=== PATIENT | female | born 1960 | race Caucasian/White ===

== ENCOUNTER 2020-04-16 08:09 | Outpatient (CLI) | payer BC, SELFPAY ==
[2020-04-16 08:53] LABS: Alanine Aminotransferase 32 U/L (4-35); Albumin Level 4.1 g/dL (3.5-5.1); Alkaline Phosphatase 71 U/L (38-126); Anion Gap 4 mmol/L (8-16); Aspartate Amino Transferase 31 U/L (14-36); Bilirubin,Total 0.5 mg/dL (0.2-1.3); Blood Urea Nitrogen 14 mg/dL (7-17); Calcium 11.1 mg/dL (8.4-10.2); Carbon Dioxide 31 mmol/L (22-30); Chloride 105 mmol/L (98-107); Cholesterol 245 mg/dL (0-200); Estimated Glomerular Filt Rate > 60; Glucose 131 mg/dL (65-105); HDL Direct 50 mg/dL; Hemoglobin A1C 5.9 % (<5.7); Potassium 4.7 mmol/L (3.4-5.0); Sodium 140 mmol/L (137-145); Triglycerides 202 mg/dL (<150)
[2020-04-16 09:04] LABS: LDL Cholesterol Direct 138 mg/dL
== END 2020-04-16 08:10 | disposition home or self-care (01) ==
PROVIDERS: PCP Family Medicine; Visit Provider Family Medicine
DX: E78.2 Mixed hyperlipidemia (principal); E11.9 Type 2 diabetes mellitus without complications; I10 Essential (primary) hypertension
CPT/HCPCS: 36415; 80053; 80061; 83036

== ENCOUNTER 2020-05-19 17:20 | Outpatient (CLI) | payer BC, SELFPAY ==
--- NOTE | ~2020-05-19 | MM_ITS ---
EXAMINATION: MM screening [facility] w stephanie HISTORY: Screening mammogram TECHNIQUE: Craniocaudal and mediolateral oblique 3-D tomosynthesis images were obtained and synthetic 2-D images were generated. CAD analysis was submitted and interpreted. COMPARISON: 04/12/2019, 01/03/2018, 11/24/2016 bilateral digital screening mammogram examinations BREAST PARENCHYMAL COMPOSITION: There are scattered areas of fibroglandular density. FINDINGS: There is no evidence of suspicious mass, calcification, or architectural distortion to sugg est malignancy in either breast. There has been no suspicious interval change. IMPRESSION: 1. No mammographic evidence of malignancy. 2. Recommend routine screening mammography in one year. BI-RADS Category 1: Negative Reviewed, dictated and finalized at location B. E [facility]
== END 2020-05-19 17:21 | disposition home or self-care (01) ==
LOC: ANHIMG 17:22
PROVIDERS: PCP Family Medicine; Visit Provider Family Medicine
DX: Z12.31 Encounter for screening mammogram for malignant neoplasm of breast (principal)
CPT/HCPCS: 77063; 77067

== ENCOUNTER 2023-01-12 08:57 | Outpatient (CLI) | payer OTHER, SELFPAY ==
--- NOTE | ~2023-01-12 | MM_ITS ---
EXAMINATION: MM screening [facility] BI w stephanie HISTORY: Screening mammogram TECHNIQUE: Craniocaudal and mediolateral oblique 3-D tomosynthesis images were obtained and synthetic 2-D images were generated. CAD analysis was submitted and interpreted. COMPARISON: 05/19/2020, 04/12/2019 BREAST PARENCHYMAL COMPOSITION: There are scattered areas of fibroglandular density. FINDINGS: No suspicious mass, calcification, or architectural distortion are identified in either verena ast to suggest malignancy. There has been no suspicious interval change. IMPRESSION: 1. No mammographic evidence of malignancy. 2. Recommend routine screening mammography in one year. BI-RADS Category 1: Negative Reviewed, dictated and finalized at location L.
== END 2023-01-12 08:58 | disposition home or self-care (01) ==
PROVIDERS: PCP Nurse Practitioner Family; Visit Provider Nurse Practitioner
DX: Z12.31 Encounter for screening mammogram for malignant neoplasm of breast (principal)
CPT/HCPCS: 77063; 77067

== ENCOUNTER 2023-09-11 07:34 | Day surgery (SDC) | payer OTHER, SELFPAY ==
[2023-08-18 15:20] VITALS: BMI 37.0
[2023-08-30 11:00] VITALS: BMI 38.2
--- NOTE | 2023-09-11 07:39 | WPDANESEPPF ---
Anes - Initial Pre Proc Eval Procedure: Operation Date: 09/11/23 09:30 Proposed Procedures p Screening Colonoscopy - Jed Gallagher DO Date/Time: 09/11/23 07:39 Surgeon: Jed Gallagher DO Pre Op Diagnosis: Screening neoplasm of colon Patient Data Age: 63 Gender: F Height: 1.6 m Weight: 97.8 kg Allergies Allergy/AdvReac Type Severity Reaction Status Date / Time Mcdotds-DZO-RrD Reductase AdvReac Unknown pain Verified 09/11/23 08:14 Inhibitor Home Medications Medication Instructions Recorded Confirmed Type blood sugar diagnostic (Blood #100 ea 12/09/19 01/17/20 Rx Glucose Test strips) lancets #100 ea 12/09/19 01/17/20 Rx cholecalciferol (vitamin D3) 125 125 mcg PO DAILY 08/17/23 09/11/23 History mcg (5,000 unit) tablet diclofenac sodium 1 % topical gel See Rx Instructions .Route 08/17/23 09/11/23 Rx .COMPLEX #100 grams losartan 100 mg tablet 100 mg PO DAILY #90 tabs 08/17/23 09/11/23 Rx metformin 500 mg tablet 500 mg PO BID #180 tabs 08/17/23 09/11/23 Rx omeprazole 40 mg capsule,delayed 40 mg PO DAILY #90 caps 08/17/23 09/11/23 Rx release semaglutide 3 mg tablet (Rybelsus) 3 mg PO DAILY 30 days #30 tabs 08/17/23 09/11/23 Rx Patient hx anesthesia problems: none Family hx anesthesia problems: none Results Review: All pre-operative results and documents have been reviewed as part of the pre-operative evaluation. [facility] Past Medical History Medical History (Updated 08/22/23 @ 08:05 by Ruthie Carbone APRN) Esposito's esophagus with low grade dysplasia Esposito's esophagus without dysplasia Carpal tunnel syndrome of left wrist Colon polyp, hyperplastic Diabetes mellitus Dupuytren's contracture of both hands Environmental allergies Essential (primary) hypertension GERD with apnea Hematuria Hx of Arevalo's palsy Hyperlipidemia associated with type 2 diabetes mellitus Hypovitaminosis D Obese Onychomycosis REN (obstructive sleep apnea) Osteopenia Other synovitis and tenosynovitis, unspecified forearm Other tenosynovitis of hand and wrist Plantar fasciitis of right foot Seasonal allergies Skin lesion of chest wall Subclinical hyperthyroidism Type 2 diabetes mellitus with albuminuria Weight loss counseling, encounter for Surgical History Surgical History (Updated 08/17/23 @ 08:19 by Milagro Jennings MA) H/O carpal tunnel repair History of tonsillectomy History of tubal ligation Family History Family History Father Hypertension Malignant neoplasm of prostate, Onset Age: 55 Family history of diabetes mellitus in first degree relative Mother Hypertension Family history of diabetes mellitus in first degree relative Sibling Hypertension Grandparent Carcinoma of colon, Onset Age: 65 Family history of pancreatic cancer Social History Social History (Updated 08/17/23 @ 08:20 by Milagro Jennings MA) Smoking packs per day: 0.5 Smoking cigarettes per day: 10.0 Years smoked: 15 Smoking pack-years: 7.50 Smoking status: Former smoker Tobacco type: cigarettes Second hand tobacco smoke exposure: No Smoking end date: 05/15/05 Alcohol intake: current Alcohol use details: social- 2 drinks per month Substance use: never Substance use type: does not use Do You Feel Safe in your Home?: Yes Lack of Transportation: No Lack of Food: Never True Current Housing: I Have Housing Concerned About Future Housing: No Difficulty Paying Gas/Electric Bills: No Difficulty Paying for Meds: No Currently Unemployed: No Education: Don't Know Difficulty w/ Childcare or Family Care: No Living arrangements: with family Occupation/Education: occupation Gender identity (if verbalized by the patient): Female Spiritual care concerns: No Anes - Eval Final PreProcedure Day of Procedure 09/11/23 07:39 Patient weight: obese Heart: regular rate and rhythm Lungs: clear to aus
[2023-09-11 08:15] VITALS: BP 139/95; PULSE 88; RESP 16; TEMP 37; O2SAT 98
[2023-09-11] MEDS: LACTATED RINGERS 1,000 ML 150 ML IV CONT (08:18)
[2023-09-11 08:27] LABS: Glucose Point of Care 126 mg/dl (65-105)
--- NOTE | 2023-09-11 09:33 | PM.IMHP ---
H&P: HPI History of Present Illness Date/Time: 09/11/23 09:33 Chief Complaint: history of colon polyps Narrative: this is a 63-year-old woman who presents for colonoscopy. Her last colonoscopy was about 6 years ago. She states that polyps were removed at that time. She denies any hematochezia. She denies any family history of colon cancer in first-degree relatives but she does have a grandfather the had colon cancer. Review of Systems Review of Systems: All systems reviewed & are unremarkable except as noted in HPI and below Constitutional: Constitutional: Denies chills, Denies fever(s), Denies headache(s) and Denies weight loss Eyes: Eyes: Denies change in vision ENT: Denies dizziness, Denies headache(s), Denies neck mass and Denies throat swelling Cardiovascular: Cardiovascular: Denies chest pain, Denies lightheadedness and Denies dyspnea Respiratory: Respiratory: Denies cough, Denies dyspnea and Denies wheezing Gastrointestinal: Gastrointestinal: Denies abdominal pain, Denies change in bowel habits, Denies nausea and Denies vomiting Genitourinary: Genitourinary: Denies hematuria and Denies dysuria Musculoskeletal: Musculoskeletal: Reports as per HPI Integumentary/Breasts: Skin/Breast: Reports as per HPI Neurologic: Denies dizziness and Denies headache(s) Allergic/Immunologic: Allergic/Immunologic: Denies throat swelling and Denies wheezing [facility] Past Medical History Medical History (Updated 09/11/23 @ 09:34 by Jed Gallagher DO) Esposito's esophagus with low grade dysplasia Esposito's esophagus without dysplasia Carpal tunnel syndrome of left wrist Colon polyp, hyperplastic Diabetes mellitus Dupuytren's contracture of both hands Environmental allergies Essential (primary) hypertension GERD with apnea Hematuria Hx of Arevalo's palsy Hyperlipidemia associated with type 2 diabetes mellitus Hypovitaminosis D Obese Onychomycosis REN (obstructive sleep apnea) Osteopenia Other synovitis and tenosynovitis, unspecified forearm Other tenosynovitis of hand and wrist Plantar fasciitis of right foot Seasonal allergies Skin lesion of chest wall Subclinical hyperthyroidism Type 2 diabetes mellitus with albuminuria Weight loss counseling, encounter for Surgical History Surgical History (Updated 08/17/23 @ 08:19 by Milagro Jennings MA) H/O carpal tunnel repair History of tonsillectomy History of tubal ligation Family History Family History Father Hypertension Malignant neoplasm of prostate, Onset Age: 55 Family history of diabetes mellitus in first degree relative Mother Hypertension Family history of diabetes mellitus in first degree relative Sibling Hypertension Grandparent Carcinoma of colon, Onset Age: 65 Family history of pancreatic cancer Social History Social History (Updated 08/17/23 @ 08:20 by Milagro Jennings MA) Smoking packs per day: 0.5 Smoking cigarettes per day: 10.0 Years smoked: 15 Smoking pack-years: 7.50 Smoking status: Former smoker Tobacco type: cigarettes Second hand tobacco smoke exposure: No Smoking end date: 05/15/05 Alcohol intake: current Alcohol use details: social- 2 drinks per month Substance use: never Substance use type: does not use Do You Feel Safe in your Home?: Yes Lack of Transportation: No Lack of Food: Never True Current Housing: I Have Housing Concerned About Future Housing: No Difficulty Paying Gas/Electric Bills: No Difficulty Paying for Meds: No Currently Unemployed: No Education: Don't Know Difficulty w/ Childcare or Family Care: No Living arrangements: with family Occupation/Education: occupation Gender identity (if verbalized by the patient): Female Spiritual care concerns: No Meds Home Medications and Allergies Home Medications Medication Instructions Recorded Confirmed Type blood sugar diagnostic (Blood #100 ea
[2023-09-11 10:22] VITALS: BP 100/57; PULSE 67; RESP 14; O2SAT 98
[2023-09-11 10:32] VITALS: BP 119/87; PULSE 65; RESP 15; O2SAT 100
--- NOTE | 2023-09-11 10:36 | WPDANESPN ---
Anes - Prog Note Post-Op Date/Time: 09/11/23 10:36 Cardiovascular status: normal Respiratory status: normal Airway patency: baseline Mental status: baseline Post-Op hydration status: normal Vital Signs: Last Vital Signs Temp 37.0 C 09/11/23 08:15 Pulse 67 09/11/23 10:22 Resp 14 09/11/23 10:22 BP 100/57 L 09/11/23 10:22 Pulse Ox 98 09/11/23 10:22 O2 Del Method Room Air 09/11/23 10:22 Pain Score (VAS): 0 I/O: Intake & Output 09/10/23 09/11/23 09/11/23 23:59 07:59 15:59 Intake Total 500 Balance 500 09/11/23 08:22 POC Capillary Glucose 126 H Post-procedural complaints: none Patient Feedback: Patient satisfied with anesthetic care. Other Findings: Patient vital signs back to baseline. Patient denies nausea and vomiting. Patient's pain under control. Patient OK for discharge.
[2023-09-11 10:42] VITALS: BP 126/88; PULSE 65; RESP 14; O2SAT 100
== END 2023-09-11 10:49 | disposition home or self-care (01) ==
PROVIDERS: PCP Nurse Practitioner Family; Visit Provider Surgery
PROC: 0DJD8ZZ Inspection of Lower Intestinal Tract, Via Natural or Artificial Opening Endoscopic (ICD-10-PCS; CPT 45378; principal; 2023-09-11 09:30)
DX: Z86.010 Personal history of colon polyps (principal); K64.8 Other hemorrhoids
CPT/HCPCS: 45378

== ENCOUNTER 2024-09-23 15:30 | Outpatient (CLI) | payer OTHER, SELFPAY ==
--- NOTE | ~2024-09-23 | MM_ITS ---
EXAMINATION: MM screening [facility] BI w stephanie HISTORY: Screening mammogram TECHNIQUE: Craniocaudal and mediolateral oblique 3-D tomosynthesis images were obtained and synthetic 2-D images were generated. CAD analysis was submitted and interpreted. COMPARISON: 01/12/2023, 05/19/2020, 04/12/2019 BREAST PARENCHYMAL COMPOSITION:Not Dense. There are scattered areas of fibroglandular density. FINDINGS: No suspicious mass, calcification, or architectural distortion are identified in either verena ast to suggest malignancy. There has been no suspicious interval change. IMPRESSION: No mammographic evidence of malignancy. Recommend routine screening mammography in one year. BI-RADS Category 1: Negative Reviewed, dictated and finalized at location .
--- OUTSIDE RECORDS SUMMARY | 2024-09-23 15:32 | XMS_ITS | Clinical Summary ---
Author Organization [facility] Address [address] [place] [address] Care Team Providers Care Service Parts Driver Name Role Phone Unavailable Primary Care Provider Unavailabl e Social History Tobacco Use Types Packs/Day Years Used Date Smoking Tobacco: Never Assessed Comments Unknown Sex and Gender Information Value Date Recorded Sex Assigned at Not on file Legal Sex Female 6:57 PM CDT Gender Identity Not on file Sexual Orientation Not on file Plan of Treatment Health Maintenance Due Date Last Done Comments Cervical Cancer Screening Pa p Smear (Age 30 to 64) Every 3 Years 1962 Colorectal Cancer Screening Colonoscopy (10 Years) 1962 Annual Physical 1965 Hepatitis C 1980 DTaP, Tdap and Td Vaccines ( 1 - Tdap) 1981 Cervical Cancer Screening Pa p with HPV Testing (Age 30 to 64) Every 5 Years 1992 Cervical Cancer Screening with HPV 1992 Mammogram Screening 2002 Pneumococcal Vaccine: 50+ Ye ars (1 of 1 - PCV) 2012 Zoster Vaccines (1 of 2) 2012 COVID-19 Vaccine (2023-2 5 season) 2024 RSV Immunization or 60+ Years (1 - 1-dose 75+ series) 2037 Meningococcal B Vaccine Aged Out No l onger eligible based on patient's age to complete this topic Meningococcal Vaccine Aged Out No maine shiv eligible based on patient's age to complete this topic RSV Immunizations Under 20 Months Aged Out No longer eligible based on patient's age to complete this topic
--- OUTSIDE RECORDS SUMMARY | 2024-09-23 15:32 | XMS_ITS | Continuity of Care Document ---
Author Organization [facility] Address [address] [facility] [address] [place] [id number] Problems Unknown Problems Results Test Value / Unit Interpretation Reference Ran ge COPY(IES) SENT TO:[$CPTO] Collected: 02/27/2024 12:24 PM Specimen Received: 02/27/2024 12:28 PM Source: [facility]:YESFASTING: YES COPY(IES) SENT TO: [$CPTO] [facility] [address] [place] [address] LIPID PANEL, STANDARD[[id number]] Collected: 02/27/2024 12:24 PM Specimen Received: 02/27/2024 12:28 PM Source: [facility]:YESFASTING: YES CHOLESTEROL, TOTAL [[id number]] 215 mg/dL H 200 mg/dL HDL CHOLESTEROL [[id number]] 45 mg/dL L > OR = 50 mg/dL TRIGLYCERIDES [[id number]] 244 mg/dL H 150 mg/dL If a non-fasting specimen wa s collected, considerrepeat triglyceride testing on a fasting specimenif clinically indicated. Jacquie et al. J. of Clin. Lipidol. 2015;9:129-169. LDL-CHOLESTEROL [[id number]] 131 mg/dL (calc) H Reference range: or = 2 CHD risk factors. LDL-C is now calculated using the Kaden calculation, which is a validated novel method providing better accuracy than the Friedewald equation in the estimation of LDL-C. Rafat SWAN et al. LANDRY. 2013;310(19): 1062-8534 (http://education.Agency Systems/faq/MGF757) CHOL/HDLC RATIO [[id number]] 4.8 (calc) N 5 .0 (calc) NON HDL CHOLESTEROL [[id number]] 170 mg/dL (calc) H 130 mg/dL (calc) For patients with diabetes p teodora 1 major ASCVD risk factor, treating to a non-HDL-C goal of 100 mg/dL (LDL-C of <70 mg/dL) is considered a therapeutic option. ALBUMIN, RANDOM URINE W/CREA KENY[[id number]] Collected: 02/27/2024 12:24 PM Specimen Received: 02/27/2024 12:28 PM Source: [facility]:YESFASTING: YES CREATININE, RANDOM URINE [[id number]] 26 mg/dL N 20-275 mg/dL ALBUMIN, URINE [[id number]] 0.3 mg/dL N Se e Note: mg/dL Reference Range:Reference Ra ngeNot established ALBUMIN/CREATININE RATIO, RA NDOM URINE [[id number]] 12 mg/g creat N 30 mg/g creat The ADA defines abnormalitie s in albuminexcretion as follows: Albuminuria Category Result (mg/g creatinine) Normal to Mildly increased OR = 300 The ADA recommends that at least two of threespecimens collected within a 3-6 month period beabnormal before considering a patient to bewithin a diagnostic category. COMPREHENSIVE METABOLIC PANE L[[id number]] Collected: 02/27/2024 12:24 PM Specimen Received: 02/27/2024 12:28 PM Source: [facility]:YESFASTING: YES GLUCOSE [[id number]] 111 mg/dL H 65-99 mg/ dL Fasting reference interval F or someone without known diabetes, a glucose valuebetween 100 and 125 mg/dL is consistent withprediabetes and should be confirmed with afollow-up test. UREA NITROGEN (BUN) [[id number]] 19 mg/dL N 7-25 mg/dL CREATININE [[id number]] 0.80 mg/dL N 0.50-1 .05 mg/dL EGFR [[id number]] 84 mL/min/1.73m2 N > OR = 6 0 mL/min/1.73m2 BUN/CREATININE RATIO [[id number]] SEE NOTE: (calc) 6-22 (calc) Not Reported: BUN and Creati nine are within reference range. SODIUM [[id number]] 138 mmol/L N 135-146 mm ol/L POTASSIUM [[id number]] 4.4 mmol/L N 3.5-5.3 mmol/L CHLORIDE [[id number]] 104 mmol/L N 98-110 m mol/L CARBON DIOXIDE [[id number]] 28 mmol/L N 20 -32 mmol/L CALCIUM [[id number]] 10.7 mg/dL H 8.6-10.4 mg/dL PROTEIN, TOTAL [[id number]] 6.8 g/dL N 6. 1-8.1 g/dL ALBUMIN [[id number]] 4.3 g/dL N 3.6-5.1 g /dL GLOBULIN [[id number]] 2.5 g/dL (calc) N 1.9-3 .7 g/dL (calc) ALBUMIN/GLOBULIN RATIO [[id number]] 1.7 (calc) N 1.0-2.5 (calc) BILIRUBIN, TOTAL [[id number]] 0.5 mg/dL N 0.2-1.2 mg/dL ALKALINE PHOSPHATASE [[id number]] 82 U/L N 37-153 U/L AST [[id number]] 13 U/L N 10-35 U/L ALT [[id number]] 19 U/L N 6-29 U/L HEMOGLOBIN A1c[496] Collected: 02/27/2024 12:24 PM Specimen Received: 02/27/2024 12:28 PM Source: [facility]:YESFASTING: YES HEMOGLOBIN A1c [[id number]] 6.1 % of total Hgb H 5.7 % of total Hgb For someone without known di abetes, a hemoglobin A1c value between 5.7% and 6.4% is consistent withprediabetes and should be confirmed with a follow-up test. For someone with known diabetes, a value 7%indicates that their diabetes is well controlled. [id number] should be individualized based on duration ofdiabetes, age, comorbid conditions, and otherconsiderations. This assay result is consistent with an increased riskof diabetes. Currently, no consensus exists regarding use ofhemoglobin A1c for diagnosis of diabetes for children. Clinical PDF Report [id number]-1[ClinicalPDFReport1] Collected: 02/27/2024 12:24 PM Specimen Received: 02/27/2024 12:28 PM Source: [facility]:YESFASTING: YES Clinical PDF Report [id number]-1 [ClinicalPDFReport1] STL Comp. Metabolic Panel (14)[[id number]] Collected: 02/15/2023 03:32 PM Specimen Received: 02/15/2023 05:00 AM Source: [facility] Glucose [[id number]] 112 mg/dL H 70-99 mg/dL BUN [646781] 17 mg/dL 8-27 mg/dL Creatinine [652368] 0.65 mg/dL 0.57-1.0 0 mg/dL eGFR [796794] 101 mL/min/1.73 >59 mL/min/ 1.73 BUN/Creatinine Ratio [677460] 26 12-28 Sodium [967359] 141 mmol/L 134-144 mmol /L Potassium [772031] 4.2 mmol/L 3.5-5.2 m mol/L Chloride [578726] 102 mmol/L 96-106 mmo l/L Carbon Dioxide, Total [664033] 23 mmol/L 20-29 mmol/L Calcium [676137] 10.0 mg/dL 8.7-10.3 mg /dL Protein, Total [511219] 6.8 g/dL 6.0- 8.5 g/dL Albumin [642981] 4.4 g/dL 3.8-4.9 g/d L Globulin, Total [845513] 2.4 g/dL 1.5 -4.5 g/dL A/G Ratio [526030] 1.8 1.2-2.2 Bilirubin, Total [140669] 0.3 mg/dL 0. 0-1.2 mg/dL Alkaline Phosphatase [836631] 66 IU/L 44-121 IU/L AST (SGOT) [629408] 19 IU/L 0-40 IU/ L ALT (SGPT) [622419] 24 IU/L 0-32 IU/ L Lipid Panel[[id number]] Collected: 02/15/2023 03:32 PM Specimen Received: 02/15/2023 05:00 AM Source: [facility] Cholesterol, Total [557772] 240 mg/dL H 100-199 mg/dL Triglycerides [033968] 164 mg/dL H 0-149 mg/dL HDL Cholesterol [635661] 44 mg/dL >39 mg/dL VLDL Cholesterol Luis [935261] 30 mg/dL 5-40 mg/dL LDL Chol Calc ([facility]) [377908] 166 mg/dL H 0-99 mg/dL Albumin/Creatinine Ratio,Uri ne[[id number]] Collected: 02/15/2023 03:32 PM Specimen Received: 02/15/2023 05:00 AM Source: [facility] Creatinine, Urine [[id number]] 8.5 mg/dL N ot Estab. mg/dL Albumin, Urine [840495] 3.0 ug/mL Not Estab. ug/mL Verified by repeat analysi s Alb/Creat Ratio [[id number]] A 0-2 9 mg/g creat The result is below the assa y's limit of quantitation which mayindicate a dilute specimen or other clinical condition. Considerrecollection at a time likely to provide a urine that is moreconcentrated. Normal: 0 - 29 Moderately increased: 30 - 300 Severely increased: >300 Hemoglobin A1c[[id number]] Collected: 02/15/2023 03:32 PM Specimen Received: 02/15/2023 05:00 AM Source: [facility] Hemoglobin A1c [[id number]] 6.2 % H 4.8- 5.6 % . Prediabetes: 5.7 - 6.4 Di abetes: >6.4 Glycemic control for adults with diabetes: 7.0 Allergies, adverse reactions, alerts No known allergies and adverse reactions Medications No administered medications reported Vital Signs No vital signs reported Social History No smoking Hx information available
== END 2024-09-23 15:31 | disposition home or self-care (01) ==
LOC: ANHIMG 15:30
PROVIDERS: PCP Nurse Practitioner Family; Visit Provider Nurse Practitioner Family
DX: Z12.31 Encounter for screening mammogram for malignant neoplasm of breast (principal)
CPT/HCPCS: 77063; 77067

== ENCOUNTER 2024-11-11 09:11 | Emergency (ER) | payer OTHER, SELFPAY ==
--- NOTE | ~2024-11-11 | XR_ITS ---
EXAMINATION: XR shoulder RT min 2V, XR humerus RT DATE: 11/11/2024 09:59 INDICATION: Right shoulder pain and decreased range of motion post fall TECHNIQUE: 1. AP internally and externally rotated, AP oblique externally rotated and transscapular Y views of t he right shoulder were obtained. 2. Internally and externally rotated views of the right humerus were obtained. COMPARISON: None FINDINGS: Normal alignment. No fracture. Glenohumeral joint is normal. Mild osteoarthritis at the right acromi oclavicular and elbow joints. Soft tissues are unremarkable. IMPRESSION: Mild right elbow and acromioclavicular osteoarthritis. No acute osseous abnormality. Reviewed, dictated and finalized at location B. IMPRESSION: Mild right elbow and acromioclavicular osteoarthritis. No acute osseous abnorma lity.
[2024-11-11 09:19] VITALS: BP 139/89; PULSE 79; RESP 18; TEMP 36.5; O2SAT 100
--- NOTE | 2024-11-11 09:35 | ED_ITS ---
HPI - Extremity Injury (Upper) General Chief Complaint: Extremity Injury, Upper Stated Complaint: fall Time Seen by Provider: 11/11/24 09:35 Source: patient Mode of arrival: ambulatory Limitations: no limitations History of Present Illness HPI narrative: 64-year-old female presented for complaint of right shoulder and upper arm pain following injury yesterday. She states she was walking downstairs, slipped, landed on her tailbone and fell down several stairs. Since then she has had decreased range of motion to the shoulder due to pain. Pain radiates from the shoulder into the forearm. Rates pain 6/10. She denies numbness, tingling, or weakness of the hand. Took Motrin last night. Patient also endorses swelling over the left thumb and tenderness to the tailbone, however she says she is not overly concerned about these problems. Denies headache, dizziness, neck pain, or LOC. Related Data Home Medications ?Medication ?Instructions ?Recorded ?Confirmed ?Last Taken ?Type cholecalciferol (vitamin D3) 125 125 mcg PO DAILY 08/17/23 04/02/24 Unknown History mcg (5,000 unit) tablet ascorbate calcium (vitamin C) 500 500 mg PO DAILY 04/02/24 04/02/24 Unknown History mg tablet Allergies Allergy/AdvReac Type Severity Reaction Status Date / Time [id number] Reductase AdvReac Unknown pain Verified 11/11/24 09:19 Inhibitor Review of Systems Review of Systems: CONSTITUTIONAL: Denies body aches, fever, chills EYES: Denies visual changes ENT: Denies rhinorrhea, congestion CARDIOVASCULAR: Denies chest pain, palpitations, or edema. RESPIRATORY: Denies cough or dyspnea. SKIN: Denies rash, itching, or wounds. MUSCULOSKELETAL: reports right shoulder pain, left thumb bruising, tailbone pain NEUROLOGIC: Denies headache, numbness, tingling, or weakness. All systems reviewed & are unremarkable except as noted in HPI and below PMFSH Past Medical History Medical History ) Subclinical hyperthyroidism Skin lesion of chest wall Obese Seasonal allergies REN (obstructive sleep apnea) Weight loss counseling, encounter for Type 2 diabetes mellitus with albuminuria Plantar fasciitis of right foot Other tenosynovitis of hand and wrist Other synovitis and tenosynovitis, unspecified forearm Osteopenia Onychomycosis Hypovitaminosis D Hyperlipidemia associated with type 2 diabetes mellitus Hx of Arevalo's palsy Hematuria GERD with apnea Essential (primary) hypertension Environmental allergies Dupuytren's contracture of both hands Colon polyp, hyperplastic Carpal tunnel syndrome of left wrist Esposito's esophagus without dysplasia Esposito's esophagus with low grade dysplasia Diabetes mellitus Surgical History Surgical History ) History of tonsillectomy History of tubal ligation H/O carpal tunnel repair Family History Family History ) Father Hypertension Malignant neoplasm of prostate, Onset Age: 55 Family history of diabetes mellitus in first degree relative Mother Hypertension Family history of diabetes mellitus in first degree relative Sibling Hypertension Grandparent Carcinoma of colon, Onset Age: 65 Family history of pancreatic cancer Social History Social History ) Social History: 02/08/24 very confident with medical forms Smoking packs per day: 0.5 Smoking cigarettes per day: 10.0 Years smoked: 15 Smoking pack-years: 7.50 Smoking status: Former smoker Tobacco type: cigarettes Second hand tobacco smoke exposure: No Smoking end date: 05/15/05 Alcohol intake: current Alcohol use details: social- 2 drinks per month Substance use: never Substance use type: does not use Do You Feel Safe in your Home?: Yes Lack of Transportation: No Lack of Food: Never True Current Housing: I Have Housing Concerned About Future Housing: No Difficulty Paying Gas/Electric Bills: No Difficulty Paying for Meds: No Currently Unemployed: No Education: Master's Degree or Higher Difficulty w/ Childcare or Family Care: No Living arrangements: with family Occupation/Education: occupation Gender identity (if verbalized by the patient): Female Spiritual care concerns: No Comments At time of signature, I have reviewed and agree with nursing past medical, surgical, social and family history unless otherwise noted. Please see nursing chart for further information. There is no relevant family history pertinent to the presenting complaint Exam Narrative: GENERAL: Well-appearing, well-nourished, and in no acute distress. CHEST: Speaks in full sentences. No respiratory distress. HEART: Regular rate and rhythm. Normal and equal peripheral pulses. EXTREMITIES: Right deltoid and mid humerus tender with palpation, Decreased passive ROM at shoulder due to pain. Right hand has normal strength and sensation. No ecchymosis, No open wounds, or obvious deformity; alignment normal, pulse palpable and equal bilaterally, skin warm, dry, pink. Capillary refill less than 3 seconds. Left 1st metacarpal area with bruising, CMS intact. SKIN: Warm, dry NEURO: Alert and oriented x3. PSYCH: Normal mood and affect Course Course Emergency Course: Patient is aware of diagnosis, understands and agrees to treatment plan. Anticipatory guidance given. Patient agrees to follow-up as directed and is aware of reasons to seek care at the emergency department. Portions of this record may have been created with voice recognition software Level of Care: Express Care Visit Vital Signs Vital signs: Vital Signs Temperature 97.7 F 11/11/24 09:19 Pulse Rate 79 11/11/24 09:19 Respiratory Rate 18 11/11/24 09:19 Blood Pressure 139/89 11/11/24 09:19 Pulse Oximetry 100 11/11/24 09:19 Oxygen Delivery Room Air 11/11/24 09:19 Temperature 97.7 F 11/11/24 09:19 Pulse Rate 79 11/11/24 09:19 Respiratory Rate 18 11/11/24 09:19 Blood Pressure 139/89 11/11/24 09:19 Pulse Oximetry 100 11/11/24 09:19 Oxygen Delivery Room Air 11/11/24 09:19 Reviewed MDM - Extremity Injury (Upper) MDM Narrative Medical decision making narrative: Discussed physical exam findings and Xray. Advised f/u with ortho and PCP as she may require further workup. Discussed option for sling and the need to frequently remove it for ROM, pt declines. Reviewed RX. Advised supportive measures and signs/symptoms to go to the ER. Pt is appropriate for outpt treatment and f/u. Differential Diagnosis Differential diagnosis: Likely other (Shoulder dislocation, clavicle fracture, humerus fracture, scapular fracture, acromioclavicular joint injury, rotator cuff tear, bicep tendon rupture, tricep tendon rupture, cervical radiculopathy) Imaging Data Radiologist's impression: Patient: Brayden Cummings : 1960 MR#: [id number] Age: 64 Acct:[id number] Loc: [facility] ADM Date: 11/11/24Attending Dr: EXAMINATION: XR shoulder RT min 2V, XR humerus RT DATE: 11/11/2024 09:59 INDICATION: Right shoulder pain and decreased range of motion post fall TECHNIQUE: 1. AP internally and externally rotated, AP oblique externally rotated and transscapular Y views of the right shoulder were obtained. 2. Internally and externally rotated views of the right humerus were obtained. COMPARISON: None FINDINGS: Normal alignment. No fracture. Glenohumeral joint is normal. Mild osteoarthritis at the right acromioclavicular and elbow joints. Soft tissues are unremarkable. IMPRESSION: Mild right elbow and acromioclavicular osteoarthritis. No acute osseous abnormality. Discharge Plan Discharge Clinical Impression: Acute shoulder pain, Fall at home Patient Disposition: Home Condition: Stable Instructions: Antibiotic Form, Coccyx Injury (ED), Shoulder Pain (ED) Additional Instructions: Xray does not show a fracture. You may require additional imaging and follow up. Rest. Avoid pushing, pulling, lifting, or anything that worsens the symptoms Tylenol 1000mg every 8 hours as needed You can alternate with ibuprofen 800mg (max 4 days) Alternate ice/heat to the site. Lidocaine or salon pas pain patch or use pain cream like icy/hot or biofreeze. Follow-up with internet database specialist, call today to schedule an appointment Follow up with your primary care provider as needed in 1 week Go to the ER for worsening symptoms or concerns Patient Language: Korean Prescriptions: New ibuprofen 800 mg tablet 800 mg PO TID PRN (Reason: pain) Qty: 12 0RF lidocaine [Lidoderm] 5 % adhesive patch,medicated 1 patch topical DAILY Qty: 15 0RF Rx Instructions: leave on most painful area for up to 12 hrs No Action cholecalciferol (vitamin D3) 125 mcg (5,000 unit) tablet 125 mcg PO DAILY omeprazole 40 mg capsule,delayed release(DR/EC) 40 mg PO DAILY Qty: 90 3RF diclofenac sodium 1 % gel See Rx Instructions .ROUTE .COMPLEX Qty: 100 0RF Dose Instruction: APPLY 4 GRAMS TOPICALLY TO SINGLE KNEE, ANKLE, FOOT( FOR FOOT INCLUDES SOLE, TOES, TOP OF FOOT) FOUR TIMES DAILY Rx Instructions: APPLY 4 GRAMS TOPICALLY TO SINGLE KNEE, ANKLE, FOOT( FOR FOOT INCLUDES SOLE, TOES, TOP OF FOOT) FOUR TIMES DAILY (DME) Blood Glucose Test Strip See Rx Instructions .ROUTE .MEDSUPPLY Qty: 100 11RF Rx Instructions: As directed BID (DME) lancets Misc See Rx Instructions .ROUTE .MEDSUPPLY Qty: 100 11RF Rx Instructions: As directed BID ascorbate calcium (vitamin C) 500 mg tablet 500 mg PO DAILY losartan 100 mg tablet 100 mg PO DAILY Qty: 90 3RF Mounjaro 10 mg/0.5 mL pen injector 10 mg subcut WEEKLY Qty: 6 1RF Follow-up/Referrals: Ruthie Carbone APRN [Primary Care Provider] - Francis Mitchell MD [Physician] -
== END 2024-11-11 10:18 | disposition home or self-care (01) ==
PROVIDERS: Emergency Provider Nurse Practitioner Family; PCP Nurse Practitioner Family
DX: M25.511 Pain in right shoulder (principal); W10.9XXA Fall (on) (from) unspecified stairs and steps, initial encounter; E11.9 Type 2 diabetes mellitus without complications; Z79.85 Long-term (current) use of injectable non-insulin antidiabetic drugs; M85.80 Other specified disorders of bone density and structure, unspecified site; E78.5 Hyperlipidemia, unspecified; K21.9 Gastro-esophageal reflux disease without esophagitis; I10 Essential (primary) hypertension; K22.719 Barrett's esophagus with dysplasia, unspecified; E66.9 Obesity, unspecified; Z68.35 Body mass index [BMI] 35.0-35.9, adult
CPT/HCPCS: 73030; 73060; 99213; G0463